=== PATIENT | female | born 1975 | race Caucasian/White ===

== ENCOUNTER 2016-06-09 21:00 | Emergency (ER) | payer SELFPAY ==
[~2016-06-09] VITALS: Ht 160 cm; Wt 117.7 kg
[~2016-06-09 21:00] MED LIST: AMBIEN5 MG PO; BACTRIM,SEPT1 TABLET PO; CEFDINIR300 MG PO; CELEXA40 MG PO; HYDROCHLOROTH12.5 M3 PO; HYDROCHLOROTHIA25 MG PO; INDERIDE 40/1 TABLET PO; LEXAPRO20 MG PO; LORATADINE10 M2 PO; NO MEDS; NOHOMEMEDS; PERCOCET 10-321 EACH PO; PERCOCET 5/31 TABLET PO; PREDNISONE20 MG PO; TESSALON PERLE100 MG PO; ULTRAM50 MG PO; VENTOLIN HFA18 GM IH; VICODIN 5-5001 EACH PO; VICODIN,LORT1 TABLET PO; XANAX XR2 MG PO; XANAX2 MG PO
[2016-06-09] MEDS ORDERED: PHENERGAN-CODE120 ML PO (22:22)
[2016-06-09] MEDS ORDERED: LIDOCAINE20 MG/1 M5 PO (22:22)
[2016-06-09] MEDS ORDERED: TESSALON PERLE100 MG PO (22:22)
[2016-06-09] MEDS ORDERED: SILVADENE20 GM TP (22:24)
[2016-06-09 23:22] VITALS: BP 128/64
== END 2016-06-09 23:24 | disposition home or self-care (01) ==
LOC: EME 21:00
DX: T21.22XA Burn of second degree of abdominal wall, initial encounter (principal); J06.9 Acute upper respiratory infection, unspecified; X12.XXXA Contact with other hot fluids, initial encounter
CPT/HCPCS: 99281; 99284

== ENCOUNTER 2016-07-16 09:46 | Emergency (ER) | payer SELFPAY ==
[~2016-07-16] VITALS: Ht 160 cm; Wt 118.0 kg
[~2016-07-16 09:46] MED LIST changes: +LIDOCAINE20 MG/1 M5 PO; +PHENERGAN-CODE120 ML PO; +SILVADENE20 GM TP
[2016-07-16] MEDS ORDERED: NAPROSYN500 MG PO (10:31)
[2016-07-16] MEDS ORDERED: FLEXERIL10 MG PO (10:31)
[2016-07-16 10:49] VITALS: BP 149/102
== END 2016-07-16 10:50 | disposition home or self-care (01) ==
LOC: EME 09:46
PROC: 2W3RX1Z Immobilization of Left Lower Leg using Splint (ICD-10-PCS; principal; 2016-07-16)
DX: S82.62XA Displaced fracture of lateral malleolus of left fibula, initial encounter for closed fracture (principal); W00.0XXA Fall on same level due to ice and snow, initial encounter
CPT/HCPCS: 73610; 99281; 99284

== ENCOUNTER 2017-03-07 12:01 | Emergency (ER) | payer OTHER ==
[~2017-03-07] VITALS: Ht 160 cm; Wt 124.2 kg
[~2017-03-07 12:01] MED LIST changes: +FLEXERIL10 MG PO; +NAPROSYN500 MG PO
[2017-03-07] MEDS ORDERED: KEFLEX500 MG PO (13:52)
[2017-03-07 14:33] VITALS: BP 127/94
== END 2017-03-07 14:34 | disposition home or self-care (01) ==
LOC: EME 12:01
PROC: 2W3JX1Z Immobilization of Right Finger using Splint (ICD-10-PCS; principal; 2017-03-07)
PROC: 0HQFXZZ Repair Right Hand Skin, External Approach (ICD-10-PCS; principal; 2017-03-07)
DX: S62.630B Displaced fracture of distal phalanx of right index finger, initial encounter for open fracture (principal); S10.93XA Contusion of unspecified part of neck, initial encounter; W23.0XXA Caught, crushed, jammed, or pinched between moving objects, initial encounter; T74.11XA Adult physical abuse, confirmed, initial encounter; Y07.03 Male partner, perpetrator of maltreatment and neglect
CPT/HCPCS: 73130; 99281; 99284; S0020

== ENCOUNTER 2017-03-22 20:43 | Emergency (ER) | payer OTHER ==
[~2017-03-22] VITALS: Ht 160 cm; Wt 125.3 kg
[~2017-03-22 20:43] MED LIST changes: +KEFLEX500 MG PO
[2017-03-22] MEDS ORDERED: BACTRIM,SEPT1 TABLET PO (21:31)
[2017-03-22 22:09] VITALS: BP 137/94
== END 2017-03-22 22:10 | disposition home or self-care (01) ==
LOC: EME 20:43
DX: T81.4XXA Infection following a procedure, initial encounter (principal); S61.210D Laceration without foreign body of right index finger without damage to nail, subsequent encounter; I10 Essential (primary) hypertension; J45.909 Unspecified asthma, uncomplicated; F32.9 Major depressive disorder, single episode, unspecified
CPT/HCPCS: 87070; 87075; 87205; 99281; 99283

== ENCOUNTER 2017-06-23 07:04 | Emergency (ER) | payer OTHER ==
[~2017-06-23] VITALS: Ht 160 cm; Wt 126.7 kg
[2017-06-23 07:06] VITALS: BP 127/94
== END 2017-06-23 09:13 | disposition left against medical advice (07) ==
LOC: EME 07:04
DX: M79.605 Pain in left leg (principal); R20.2 Paresthesia of skin; Z53.21 Procedure and treatment not carried out due to patient leaving prior to being seen by health care provider